=== PATIENT | female | born 1990 | race Caucasian/White ===

== ENCOUNTER 2022-03-15 11:12 | Outpatient (CLI) | payer BC ==
[2022-03-15 12:38] LABS: Hemoglobin 11.6 g/dL (12.0-15.5); Mean Corpuscular HGB CONC 34.1 g/dL (32.0-36.0); Mean Corpuscular Hemoglobin 30.3 pg (27.0-33.0); Mean Corpuscular Volume 88.8 fl (81.6-98.3); Mean Platelet Volume 11.4 fl (7.4-10.4); Platelet Count 196 10x3/uL (150-450); RBC Distribution Width 14.2 % (11.5-14.5); Red Blood Cell (RBC) Count 3.83 10x6/uL (3.90-5.03); White Blood Cell (WBC) Count 9.5 10x3/uL (3.5-10.5)
[2022-03-15 13:09] LABS: Hep B Surf Ag Non-Reactive S/CO (NonReactive)
[2022-03-15 13:10] LABS: Syphilis Antibody Nonreactive (Nonreactive); Syphilis Antibody Index 0.08 S/CO (<1.00 Non-Reactive)
[2022-03-15 13:20] LABS: HBSAg Index 0.16 S/CO (0-0.99)
== END 2022-03-15 11:13 | disposition home or self-care (01) ==
LOC: CSHLAB 11:12
PROVIDERS: ATTEND Student in an Organized Health Care Education/Training Program
DX: Z01.812 Encounter for preprocedural laboratory examination (principal); Z20.822 Contact with and (suspected) exposure to COVID-19
CPT/HCPCS: 36415; 85027; 86780; 86900; 86901; 87340; U0003; U0005

== ENCOUNTER 2022-03-19 10:06 | Inpatient (IN) | payer BC ==
[2022-03-19] MEDS ORDERED: hydrALAZINE 20 MG/ML VIAL SLOW IVP PRN ×2 (10:11→15:01)
[2022-03-19] MEDS ORDERED: Ondansetron PF 4 MG/2 ML Vial IVP PRN ×2 (10:11→13:59)
[2022-03-19] MEDS ORDERED: Bicitra 30 ML UDCUP PO PRN (10:11)
[2022-03-19] MEDS ORDERED: Famotidine/PF 20 mg/2ml Vial SLOW IVP PRN (10:11)
[2022-03-19] MEDS ORDERED: Acetaminophen 500 MG TAB PO PRN (10:11)
[2022-03-19] MEDS ORDERED: Butorphanol Tartrate 1 MG/ML VIAL SLOW IVP PRN (10:11)
[2022-03-19] MEDS ORDERED: Promethazine HCl 25 MG/ML VIAL IM PRN ×2 (10:11→13:59)
[2022-03-19] MEDS ORDERED: Lactated Ringer's 1,000 ML IV SCH (10:15)
[2022-03-19] MEDS ORDERED: CEFAZOLIN 2 GM in Sodium Chloride 0.9% 100 ML IVPB SCH (10:15)
[2022-03-19] MEDS ORDERED: Ketorolac Tromethamine 30 MG/ML VIAL ONE (10:30)
[2022-03-19] MEDS ORDERED: Ondansetron PF 4 MG/2 ML Vial ONE (10:30)
[2022-03-19] MEDS ORDERED: Phenylephrine 10 MG/ML VIAL ONE (10:30)
[2022-03-19] MEDS ORDERED: Oxytocin 10 UNITS/ML VIAL ONE ×2 (10:30→12:31)
[2022-03-19 11:27] VITALS: BMI 30.9
[2022-03-19] MEDS ORDERED: Fentanyl 100 MCG/2 ML VIAL ONE (12:01)
[2022-03-19] MEDS ORDERED: Morphine PF 10 MG/10 ML VIAL ONE (12:01)
[2022-03-19] MEDS ORDERED: Naloxone HCl 0.4 mg/ml Vial IVP PRN ×2 (13:59)
[2022-03-19] MEDS ORDERED: Promethazine HCl 25 MG SUPP PR PRN (13:59)
[2022-03-19] MEDS ORDERED: Fentanyl 100 MCG/2 ML VIAL SLOW IVP PRN (13:59)
[2022-03-19] MEDS ORDERED: Meperidine HCl/PF 25 MG/ML VIAL SLOW IVP PRN (13:59)
[2022-03-19] MEDS ORDERED: Ondansetron HCl/PF 4 MG/2 ML Vial IVP PRN (13:59)
[2022-03-19] MEDS ORDERED: Naloxone HCl 0.4 mg/ml Vial IV PRN (13:59)
[2022-03-19] MEDS ORDERED: diphenhydrAMINE 50 MG/ML VIAL IVP PRN (13:59)
[2022-03-19] MEDS ORDERED: Moisturizing Cream (Eucerin) 113 GM JAR TOP PRN (13:59)
[2022-03-19] MEDS ORDERED: HYDROmorphone 2 MG/ML VIAL SLOW IVP PRN (13:59)
[2022-03-19] MEDS ORDERED: Ketorolac Tromethamine 30 MG/ML VIAL IVP PRN (13:59)
[2022-03-19] MEDS ORDERED: Ketorolac Tromethamine 30 MG/ML VIAL IVP SCH (14:00)
[2022-03-19] MEDS ORDERED: Communication Order-Pharmacy FS SCH (14:00)
[2022-03-19] MEDS ORDERED: Simethicone Chewable 80 MG TAB PO PRN (15:01)
[2022-03-19] MEDS ORDERED: diphenhydrAMINE 25 MG CAP PO PRN (15:01)
[2022-03-19] MEDS ORDERED: Acetaminophen 325 MG TAB PO PRN (15:01)
[2022-03-19] MEDS ORDERED: Acetaminophen/Codeine 30-300mg Tablet PO PRN ×2 (15:01)
[2022-03-19] MEDS ORDERED: Boostrix 0.5 ML (Tdap) VIAL IM ONE (15:01)
[2022-03-19] MEDS ORDERED: Lanolin Ointment 7 GM TUBE TOP PRN (15:01)
[2022-03-19] MEDS ORDERED: Bisacodyl 10 MG SUPP PR PRN (15:01)
[2022-03-19] MEDS: Ondansetron PF 4 MG/2 ML Vial IVP PRN (18:24)
[2022-03-20] MEDS: Ondansetron PF 4 MG/2 ML Vial IVP PRN (03:28)
[2022-03-20 05:12] LABS: Hemoglobin 10.5 g/dL (12.0-15.5); Mean Corpuscular Hemoglobin 30.4 pg (27.0-33.0); Mean Corpuscular Volume 89.6 fl (81.6-98.3); Mean Platelet Volume 11.4 fl (7.4-10.4); Platelet Count 160 10x3/uL (150-450); RBC Distribution Width 14.4 % (11.5-14.5); Red Blood Cell (RBC) Count 3.45 10x6/uL (3.90-5.03); White Blood Cell (WBC) Count 13.2 10x3/uL (3.5-10.5)
[2022-03-20] MEDS: Ferrous Sulfate 325 MG TAB PO SCH ×2 (07:41→08:53)
[2022-03-20] MEDS: Docusate 100 MG CAP PO SCH ×3 (07:41→21:08)
[2022-03-20] MEDS: Prenatal Vitamin 1 TAB PO SCH (08:39)
[2022-03-20] MEDS: Ibuprofen 800 MG TAB PO SCH (21:08)
[2022-03-21] MEDS: Ferrous Sulfate 325 MG TAB PO SCH ×2 (03:09→08:40)
[2022-03-21] MEDS: Ibuprofen 800 MG TAB PO SCH (05:25)
[2022-03-21] MEDS: Prenatal Vitamin 1 TAB PO SCH (08:40)
[2022-03-21] MEDS: Docusate 100 MG CAP PO SCH (08:40)
[2022-03-21 11:21] VITALS: BP 105/71; TEMP 98.1
== END 2022-03-21 13:25 | disposition home or self-care (01) | DRG 788 ==
LOC: CSHLD 10:06 → CSHPP 15:53
PROVIDERS: ADMIT Student in an Organized Health Care Education/Training Program; ATTEND Student in an Organized Health Care Education/Training Program
PROC: 10D00Z1 Extraction of Products of Conception, Low, Open Approach (ICD-10-PCS; principal; 2022-03-19)
DX: O34.211 Maternal care for low transverse scar from previous cesarean delivery (principal); Z3A.39 39 weeks gestation of pregnancy; Z37.0 Single live birth; Z88.6 Allergy status to analgesic agent; Z88.8 Allergy status to other drugs, medicaments and biological substances; O99.824 Streptococcus B carrier state complicating childbirth; O32.1XX0 Maternal care for breech presentation, not applicable or unspecified
CPT/HCPCS: 36415; 51702; 85027; 86850; 86900; 86901; J0690; J1885; J2274; J2370; J2405; J2550; J2590; J3010; J3490; J7120; S0028

== ENCOUNTER 2022-08-15 13:00 | Emergency (ER) | payer BC ==
[2022-08-15] MEDS ORDERED: Ketorolac Tromethamine 30 MG/ML VIAL ONE (14:49)
[2022-08-15] MEDS ORDERED: cefTRIAXone\\ROCEPHIN 2 GM VIAL ONE (14:49)
[2022-08-15 14:50] LABS: Bilirubin Neg (Negative); Blood, Urine 50 (Negative); Clarity Clear (Clear); Glucose, Urine (Dipstick) Normal (Negative); Ketone, Urine Negative (Negative); Leukocyte Negative (Negative); Nitrite Negative (Negative); Protein, Urine (Dipstick) 15 mg/dl (Neg-Trace); Specific Gravity, Urine 1.015 (1.005-1.030); Urobilinogen Normal mg/dL (Less than 2)
[2022-08-15 14:56] LABS: #Eosinphils 0.1 10x3/uL (0.0-0.5); #Monocytes 0.5 10x3/uL (0.0-1.1); #Neutrophils 5.7 10x3/uL (1.5-8.4); %Basophils 0.4 % (0.0-2.0); %Eosinophils 0.8 % (0.0-6.0); %Lymphocytes 22.9 % (18.0-47.0); %Monocytes 6.4 % (0.0-10.0); %Neutrophils 69.3 % (40.0-75.0); Hemoglobin 13.3 g/dL (12.0-15.5); Mean Corpuscular HGB CONC 34.4 g/dL (32.0-36.0); Mean Corpuscular Hemoglobin 30.1 pg (27.0-33.0); Mean Corpuscular Volume 87.6 fl (81.6-98.3); Mean Platelet Volume 9.9 fl (7.4-10.4); Platelet Count 269 10x3/uL (150-450); RBC Distribution Width 12.4 % (11.5-14.5); Red Blood Cell (RBC) Count 4.42 10x6/uL (3.90-5.03); White Blood Cell (WBC) Count 8.3 10x3/uL (3.5-10.5)
[2022-08-15 15:04] LABS: Bacteria/HPF Rare-Few HPF (None Seen); Squamous Epithelial 0-3 HPF (0-3); WBC/HPF 0-3 HPF (0-3)
[2022-08-15 15:10] LABS: CK (CPK) 62 U/L (29-168); CRP (Inflammatory) Less than 0.50 mg/dL (= or < 0.5)
[2022-08-15 15:11] LABS: ALT (SGPT) 21 U/L (8-55); AST (SGOT) 17 U/L (5-34); Albumin 4.8 g/dL (3.5-5.0); Alkaline Phosphatase 96 U/L (40-110); Anion Gap 11 mmol/L (10-20); BUN (Urea Nitrogen) 14 mg/dL (7.0-18.7); Calc. Creatinine Clearance 0 mL/min (70-130); Calcium 10.7 mg/dL (7.8-10.44); Carbon Dioxide 28 mmol/L (22-29); Chloride 105 mmol/L (98-107); Estimated GFR 108; Globulin 3.2 g/dL (2.4-3.5); Glucose 69 mg/dL (70-105); Potassium 3.5 mmol/L (3.5-5.1); Sodium 140 mmol/L (136-145)
== END 2022-08-15 16:39 | disposition home or self-care (01) ==
LOC: CSHERS 13:00
DX: N61.0 Mastitis without abscess (principal)
CPT/HCPCS: 80053; 81003; 81015; 82550; 83605; 85025; 86140; 87086; 96365; 96375; J0696; J1885